=== PATIENT | male | born 1940 | race Caucasian/White ===

== ENCOUNTER 2017-08-21 17:19 | Emergency (ER) | payer OTHER ==
[~2017-08-21] VITALS: Ht 182.9 cm; Wt 95.5 kg
[2017-08-21] VITALS (18 sets, daily range): BP systolic 152–199; BP diastolic 78–119; PULSE 100–111; TEMP 36.5; O2SAT 92–98; Ht 182.9 cm; Wt 95.5 kg
[~2017-08-21 17:19] MED LIST: ACET-1256 PO; DTR5 PO; FINA5TAB PO; FURO40TA3 PO; MAGNSUS5 PO; MCRK20 PO; METO50TA8 PO; MOME1AER4 INH; OMEP20CA9 PO; OXGN; SENN8.6T94 PO; TERA1CAP63 PO; TIOTCAP INH; TYLOTC500 PO
[2017-08-21] MEDS ORDERED: FENTANYL CITRATE INJ 50 MCG/1 ML 2 ML VIAL IV STA (17:45)
[2017-08-21 18:10] LABS: HEMATOCRIT 46.1 % (42-52); HEMOGLOBIN 15.8 g/dL (14.0-18.0); MEAN CELL VOLUME 96.4 fL (80-100); MEAN CORPUSCULAR HEMOGLOBIN 33.1 pg (25-34); MEAN CORPUSCULAR HGB CONC 34.3 g/dl (32-36); MEAN PLATELET VOLUME 9.1 fL (7.4-10.4); PLATELET COUNT 173 K/uL (130-400); RED CELL DISTRIBUTION WIDTH CV 13.2 % (11.5-14.5); RED CELL DISTRIBUTION WIDTH SD 46.2 fL (36.4-46.3); WHITE BLOOD COUNT 9.94 K/uL (4.8-10.8)
[2017-08-21 18:21] LABS: PTT PATIENT 23.3 SECONDS (21.0-31.0)
[2017-08-21] MEDS ORDERED: LORA10TA51 PO (18:22)
[2017-08-21 18:29] LABS: CALCIUM 9.3 mg/dl (8.5-10.1); CREATININE 1.15 mg/dl (0.60-1.40); POTASSIUM 4.2 mmol/L (3.5-5.1)
--- NOTE | 2017-08-21 18:49 | DIAGNOSTIC IMAGING REPORT ---
CT SCAN OF THE BRAIN WITHOUT IV CONTRAST CLINICAL HISTORY: Fall with head injury. COMPARISON STUDY: No priors. TECHNIQUE: Unenhanced axial CT scan of the brain is performed from the vertex to the skull base. A dose lowering technique was utilized adhering to the principles of ALARA. FINDINGS: Brain parenchyma: There are age-related involutional changes noting mild subcortical and periventricular microangiopathic change. There is no hemorrhage, mass effect, or evidence of acute territorial ischemia by CT criteria. Barton-white matter is preserved. No extra-axial fluid collection is seen. Ventricles, sulci, cisterns: Prominent secondary to involutional change. Intracranial vasculature: There is atherosclerotic calcification of the cavernous carotid intervertebral arteries. Calvarium: The skeletal structures are osteopenic. There is no depressed calvarial fracture. Sinuses and mastoids: The visualized paranasal sinuses are clear. The mastoid air cells are well pneumatized. Orbits: The bony orbits are grossly intact. There are bilateral ocular lens implants. IMPRESSION: There is no hemorrhage, mass effect, or evidence of acute territorial ischemia by CT criteria. Electronically signed by: Jose Porter M.D. 08/21/2017 6:47 PM Dictated Date/Time: 08/21/2017 6:45 PM
--- NOTE | 2017-08-21 18:53 | DIAGNOSTIC IMAGING REPORT ---
CT SCAN OF THE CERVICAL SPINE CLINICAL HISTORY: Fall. COMPARISON STUDY: No priors. TECHNIQUE: CT scan of the cervical spine is performed from the skull base to the upper thoracic spine. Images are reviewed in the axial, sagittal, and coronal planes. IV contrast was not administered for this examination. A dose lowering technique was utilized adhering to the principles of ALARA. CT DOSE: 1270.33 mGy.cm FINDINGS: Skeletal structures: The skeletal structures are osteopenic. There is no evidence of fracture or subluxation involving the cervical spine. There is incomplete bony fusion of the posterior ring of C1, likely on a congenital basis. Vertebral body height is maintained. There is minimal anterolisthesis at C7-T1. Alignment is otherwise preserved. There is straightening of the cervical lordosis. Anterior osteophytes are seen throughout. The odontoid process and lateral masses are intact. The atlantoaxial articulation is preserved noting productive degenerative change. The spinous processes appear intact. There is mild multilevel spondylosis. Uncovertebral and facet arthropathy are noted at several levels. Intervertebral discs: Moderate disc space narrowing is seen at C5-C6, C6-C7, and C7-T1. Central canal: Grossly patent. Soft tissues: The prevertebral and paraspinous soft tissues are within normal limits. There is atherosclerotic calcification of the carotid bulbs. Coarse calcification is noted in the right thyroid lobe. Calvarium: The visualized calvarium at the skull base appears intact. Brain parenchyma: Partially visualized brain parenchyma the skull base is within normal limits. Sinuses and mastoids: The visualized paranasal sinuses are clear. The mastoid air cells are well pneumatized. Lung apices: Clear as visualized. IMPRESSION: 1. There is no evidence of fracture or subluxation involving the cervical spine. 2. Osteopenia and spondylotic change as above. Electronically signed by: Jose Porter M.D. 08/21/2017 6:51 PM Dictated Date/Time: 08/21/2017 6:48 PM
[2017-08-21] MEDS ORDERED: NURSING VERBAL MED ORDER ONE (19:20)
[2017-08-21] MEDS ORDERED: CHOL200010 PO (19:21)
[2017-08-21] MEDS ORDERED: METO50TA16 PO (19:21)
[2017-08-21] MEDS ORDERED: SPRIN/30 INH (19:21)
[2017-08-21] MEDS ORDERED: LSX40 PO (19:21)
[2017-08-21] MEDS ORDERED: POTA-639 PO (19:21)
[2017-08-21] MEDS ORDERED: ATV/1 PO (19:21)
[2017-08-21] MEDS ORDERED: DTR/5 PO (19:21)
[2017-08-21] MEDS ORDERED: CALC600T PO (19:21)
[2017-08-21] MEDS ORDERED: PRLSR20 PO (19:21)
[2017-08-21] MEDS ORDERED: MAGN400T6 PO (19:21)
--- NOTE | 2017-08-21 19:41 | EMERGENCY ROOM VISIT NOTE ---
ED Visit Note First contact with patient: 17:22 Patient was seen by our PA/HEALTH CARE ASSISTANT. I was involved in the patient's care and did evaluate the patient myself. I was involved in the care throughout the ER stay. The patient presents after a fall. Imaging revealed a left anterior shoulder dislocation. No evidence for injury to the neck or brain from the fall. The patient has COPD and was hypoxic here even without being medicated. We did attempt to put his left shoulder back into position with scapular manipulation and humeral traction while he was prone, this was not successful. He could not relax enough for the shoulder to be reduced. Because he is a high risk patient with regards to anesthesia, the anesthesiologist on-call has been consulted for conscious sedation.
[2017-08-21] MEDS ORDERED: MOME110A INH (20:16)
--- NOTE | 2017-08-21 20:29 | EMERGENCY ROOM VISIT NOTE ---
Pre-Mod Sedation Assessment General Date of Moderate Sedation: Aug 21, 2017. Vital Signs: Vital Signs Past 12 Hours Date Time Temp Pulse Resp B/P (MAP) Pulse Ox O2 Delivery O2 Flow Rate FiO2 08/21/17 18:55 96 20 161/77 96 08/21/17 17:30 36.5 92 18 196/94 94 Room Air Review Cardiovascular: no gallop, + tachycardia, + systolic murmur Abdomen: normal bowel sounds, non tender, soft, no organomegaly, no pulsatile mass Lungs: chest non-tender, lungs clear, normal breath sounds, no respiratory distress, no accessory muscle use Pre-Sedation Airway Assessment Oral Cavity: Dentures Able to Visualize Vocal Cords: No Short Thick Neck: No Hx of Sleep Apnea: No Smoking Status: Never Smoker Mallampati Classification: Class I ASA Classification: Class III Procedure Planning Contraindications-for Mod Sed: None Yes Notes The planned sedation has been discussed with the patient and consent obtained. I have identified the patient, determined the appropriateness of sedation and have assessed the patient immediately prior to the procedure. All medicine(s) and interventions are by my order.
[2017-08-21] MEDS ORDERED: ONDANSETRON INJ 2 MG/ML 2 ML VIAL IV STA (20:31)
[2017-08-21] MEDS ORDERED: ONDANSETRON INJ 2 MG/ML 2 ML VIAL ONE (20:32)
[2017-08-21] MEDS ORDERED: PROPOFOL IV EMULSION 10 MG/ML 20 ML VIAL IV ONE (20:40)
[2017-08-21] MEDS ORDERED: KETAMINE HCL INJ 50 MG/ML 10 ML VIAL ONE (20:40)
--- NOTE | 2017-08-21 20:56 | EMERGENCY ROOM VISIT NOTE ---
Post-Moderate Sedation Plan General Date of Moderate Sedation Aug 21, 2017. Vital Signs: Vital Signs Past 12 Hours Date Time Temp Pulse Resp B/P (MAP) Pulse Ox O2 Delivery O2 Flow Rate FiO2 08/21/17 20:19 103 21 94 08/21/17 20:18 195/100 08/21/17 19:49 172/86 08/21/17 18:55 96 20 161/77 96 08/21/17 17:30 36.5 92 18 196/94 94 Room Air Review - Discharge Plan Post Moderate Sedation Plan: On clinical assessment, the patient appears to have tolerated the conscious sedation without complications. Patient is recovering as anticipated. Patient will continue to be monitored by nursing and may be discharged when conscious sedation discharge criteria are met.
[2017-08-21] MEDS ORDERED: METOPROLOL TARTRATE 50 MG TAB PO STA (21:30)
--- NOTE | 2017-08-21 21:59 | EMERGENCY ROOM VISIT NOTE ---
ED Visit Note First contact with patient: 17:22 Conscious sedation: The patient did consent to conscious sedation, all the appropriate paperwork was signed. A timeout was taken. He was placed on the needed monitors, an Ambu bag and suction were made ready. The patient received a total of 50 mg of ketamine IV, 25 mg of propofol IV, this allowed for conscious sedation and the left shoulder was reduced. The patient was watched after the procedure, he has done well. No hypoxia. He is awake and interactive. His blood pressure was higher right after the procedure however, the blood pressure did begin to trend down. The patient was due for his nightly dose of metoprolol, this was given orally. Postreduction films were ordered. Total time for the procedure was 16 minutes.
--- NOTE | 2017-08-21 22:17 | DIAGNOSTIC IMAGING REPORT ---
LEFT WRIST 3 VIEWS CLINICAL HISTORY: Fall with left arm pain. FINDINGS: AP, oblique, and crosstable lateral views of left wrist are attempted. No prior studies are available for comparison at the time of dictation. The examination is degraded by suboptimal positioning. The skeletal structures are osteopenic. No fracture is identified. There is negative ulnar variance. Cystic degenerative change is present in the distal radius. The joint spaces of the wrist appear preserved. The overlying soft tissues are normal as visualized. IMPRESSION: There is no radiographic evidence of left wrist fracture noting an examination degraded by inability to properly position the patient. If there is strong clinical concern for occult fracture consider short-term radiographic follow-up. Electronically signed by: Jose Porter M.D. 08/21/2017 10:15 PM Dictated Date/Time: 08/21/2017 10:13 PM
--- NOTE | 2017-08-21 22:26 | DIAGNOSTIC IMAGING REPORT ---
LEFT SHOULDER 3 VIEWS CLINICAL HISTORY: Fall with left shoulder pain. FINDINGS: 3 portable views of the left shoulder are obtained. No prior studies are available for comparison at the time of dictation. The skeletal structures are osteopenic. No fracture or dislocation is identified. The glenohumeral articulation is preserved. Mild arthritic change and sclerosis is seen in the greater tuberosity of the humeral head. Productive change is noted at the acromioclavicular joint. The overlying soft tissues are within normal limits. The visualized left upper lobe lung parenchyma appears clear. IMPRESSION: Osteopenia and mild arthritic change as above. No left shoulder fracture or dislocation is identified. Electronically signed by: Jose Porter M.D. 08/21/2017 10:24 PM Dictated Date/Time: 08/21/2017 10:23 PM
--- NOTE | 2017-08-21 23:06 | EMERGENCY ROOM VISIT NOTE ---
History First contact with patient: 17:22 Chief Complaint: FALL Stated Complaint: SHOULDER PAIN, FALL History of Present Illness The patient is a 77 year old male who presents to the Emergency Room via ambulance with complaints of "shoulder pain, fall". The patient states that earlier today around 1630 he was ambulating across a region of his house, when he tripped over the carpet and then fell forward. He believes that he caught his left shoulder on a table and then fell to the ground striking his face. He notes his only pain is that in the left shoulder which he rates as a 9/10. He has never dislocated this before. He has right-hand dominant. Any blood thinner he takes is aspirin. There is no chest pain or shortness of breath. No strokelike symptoms. Review of Systems A complete 10-point Review of Systems was discussed with the patient, with pertinent positives and negatives listed in the History of Present Illness. All remaining Review of Systems questions can be considered negative unless otherwise specified. Past Medical/Surgical History Medical Problems: (1) COPD (chronic obstructive pulmonary disease) (2) HLD (hyperlipidemia) (3) HTN (hypertension) (4) Prostate disease (5) Sepsis Surgical Problems: (1) H/O hernia repair (2) History of appendectomy (3) S/P TURP Family History FH: heart disease Social History Smoking Status: Never Smoker Marital Status: Housing Status: lives with family Occupation Status: retired Current/Historical Medications Scheduled Acetaminophen (Tylenol), 1,000 MG PO HS Calcium Carbonate (Calcium 600), 600 MG PO BID Cholecalciferol (Vitamin D), 2,000 UNITS PO DAILY Finasteride (Proscar), 5 MG PO HS Furosemide (Furosemide), 40 MG PO DAILY Loratadine (Claritin), 10 MG PO HS Lorazepam (Ativan), 1 MG PO BID Magnesium Oxide (Mag-Ox), 400 MG PO DAILY Metoprolol Tartrate (Lopressor) (Lopressor), 50 MG PO BID Mometasone Furoate (Inhalation (Asmanex 30 Metered Doses), 1 PUFF INH BID Omeprazole (Prilosec), 20 MG PO DAILY Oxybutynin Chloride (Ditropan), 5 MG PO TID Potassium Ext Rel (Klor-Con), 20 MEQ PO DAILY Sennosides (Sennosides), 8.6 MG PO HS Terazosin Hcl (Hytrin), 10 MG PO HS Tiotropium [place] (Spiriva Handihaler), 1 CAP INH DAILY Scheduled PRN Acetaminophen (Tylenol), 1,000 MG PO Q6H PRN for Pain or Fever Physical Exam Vital Signs Date Time Temp Pulse Resp B/P (MAP) Pulse Ox O2 Delivery O2 Flow Rate FiO2 08/21/17 23:30 110 18 159/78 96 08/21/17 22:59 111 08/21/17 22:47 110 18 155/98 94 Nasal Cannula 3.0 08/21/17 22:31 108 149/107 94 Nasal Cannula 3.0 08/21/17 22:00 109 20 159/102 96 Nasal Cannula 3.0 08/21/17 21:55 110 25 159/99 95 Nasal Cannula 3.0 08/21/17 21:50 111 23 157/89 95 Nasal Cannula 3.0 08/21/17 21:45 109 22 152/84 95 Nasal Cannula 3.0 08/21/17 21:40 109 19 185/98 98 Nasal Cannula 3.0 08/21/17 21:37 106 25 170/117 97 Nasal Cannula 3.0 08/21/17 21:35 107 19 153/103 97 Nasal Cannula 3.0 08/21/17 21:30 107 23 155/102 95 Nasal Cannula 3.0 08/21/17 21:25 107 20 173/105 96 Nasal Cannula 3.0 08/21/17 21:20 105 28 185/93 96 Nasal Cannula 3.0 08/21/17 21:10 105 28 199/102 96 Nasal Cannula 3.0 08/21/17 21:05 103 22 196/119 96 Nasal Cannula 4.0 08/21/17 21:00 104 22 190/107 95 Nasal Cannula 4.0 08/21/17 20:55 100 22 192/93 97 Nasal Cannula 4.0 08/21/17 20:50 102 28 194/107 92 Nasal Cannula 4.0 08/21/17 20:46 100 19 194/107 95 Nasal Cannula 2.0 08/21/17 20:19 103 21 94 08/21/17 20:18 195/100 08/21/17 19:49 172/86 08/21/17 18:55 96 20 161/77 96 08/21/17 17:30 36.5 92 18 196/94 94 Room Air Physical Exam VITAL SIGNS - Vital signs and nursing notes were reviewed. Stable and hypertensive. GENERAL -77-year-old male appearing his stated age who is in no acute distress. Communicates well with provider and answers questions appropriately. SKIN - Without rashes. No meningeal or petechial rash. The skin overlying the left shoulder is unremarkable other than it is slightly deformed underneath suggesting that of a left shoulder dislocation. HEAD - NC/AT. No gomez signs or raccoon's eyes. EYES - PERRL with EOMI bilaterally. Sclera anicteric. No hyphema. EARS - No deformities of external structures noted on gross examination bilaterally. No hemotympanum. External auditory canals without discharge or otorrhea. Tympanic membranes pearly barton without retraction or bulging. No fluid or purulent material visualized behind the TM. Handle of malleus, umbo, cone of light, pars tensa/flaccid all easily visualized. NOSE - Midline and without cyanosis. No epistaxis or purulent drainage noted. Septum midline without deviation or septal hematoma noted. MOUTH/OROPHARYNX - Without perioral cyanosis. Buccal mucosa pink and moist and without leukoplakia. Tongue midline with equal elevation of palate bilaterally. No tonsillar hypertrophy, erythema, or exudates noted. Fair dentition noted. NECK - Neck with FROM. Supple to palpation. No C-spine tenderness. LUNGS - Chest wall symmetric without accessory muscle use, intercostals retractions, or central cyanosis. Normal vesicular breath sounds CTA B/L. No wheezes, rales, or rhonchi appreciated. CARDIAC - RRR with S1/S2. No murmur, rubs, or gallops appreciated. EXTREMITIES - No clubbing or peripheral cyanosis. Tenderness overlying the left shoulder joint. Decreased range of motion secondary to suspected dislocation. He is neurovascularly intact distal to the suspected dislocation. +5/5 strength noted in UE/LE bilaterally. NEUROLOGIC - Cranial nerves II through XII grossly intact. Sensory intact to light touch throughout. PSYCH - A&O, and cooperates fully with examiner. Pt is very pleasant and interacts well with examiner. Medical Decision & Procedures ER Provider Diagnostic Interpretation: CT SCAN OF THE BRAIN WITHOUT IV CONTRAST CLINICAL HISTORY: Fall with head injury. COMPARISON STUDY: No priors. TECHNIQUE: Unenhanced axial CT scan of the brain is performed from the vertex to the skull base. A dose lowering technique was utilized adhering to the principles of ALARA. FINDINGS: Brain parenchyma: There are age-related involutional changes noting mild subcortical and periventricular microangiopathic change. There is no hemorrhage, mass effect, or evidence of acute territorial ischemia by CT criteria. Barton-white matter is preserved. No extra-axial fluid collection is seen. Ventricles, sulci, cisterns: Prominent secondary to involutional change. Intracranial vasculature: There is atherosclerotic calcification of the cavernous carotid intervertebral arteries. Calvarium: The skeletal structures are osteopenic. There is no depressed calvarial fracture. Sinuses and mastoids: The visualized paranasal sinuses are clear. The mastoid air cells are well pneumatized. Orbits: The bony orbits are grossly intact. There are bilateral ocular lens implants. IMPRESSION: There is no hemorrhage, mass effect, or evidence of acute territorial ischemia by CT criteria. Electronically signed by: Jose Porter M.D. 08/21/2017 6:47 PM Dictated Date/Time: 08/21/2017 6:[address] SCAN OF THE CERVICAL SPINE CLINICAL HISTORY: Fall. COMPARISON STUDY: No priors. TECHNIQUE: CT scan of the cervical spine is performed from the skull base to the upper thoracic spine. Images are reviewed in the axial, sagittal, and coronal planes. IV contrast was not administered for this examination. A dose lowering technique was utilized adhering to the principles of ALARA. CT DOSE: 1270.33 mGy.cm FINDINGS: Skeletal structures: The skeletal structures are osteopenic. There is no evidence of fracture or subluxation involving the cervical spine. There is incomplete bony fusion of the posterior ring of C1, likely on a congenital basis. Vertebral body height is maintained. There is minimal anterolisthesis at C7-T1. Alignment is otherwise preserved. There is straightening of the cervical lordosis. Anterior osteophytes are seen throughout. The odontoid process and lateral masses are intact. The atlantoaxial articulation is preserved noting productive degenerative change. The spinous processes appear intact. There is mild multilevel spondylosis. Uncovertebral and facet arthropathy are noted at several levels. Intervertebral discs: Moderate disc space narrowing is seen at C5-C6, C6-C7, and C7-T1. Central canal: Grossly patent. Soft tissues: The prevertebral and paraspinous soft tissues are within normal limits. There is atherosclerotic calcification of the carotid bulbs. Coarse calcification is noted in the right thyroid lobe. Calvarium: The visualized calvarium at the skull base appears intact. Brain parenchyma: Partially visualized brain parenchyma the skull base is within normal limits. Sinuses and mastoids: The visualized paranasal sinuses are clear. The mastoid air cells are well pneumatized. Lung apices: Clear as visualized. IMPRESSION: 1. There is no evidence of fracture or subluxation involving the cervical spine. 2. Osteopenia and spondylotic change as above. Electronically signed by: Jose Porter M.D. 08/21/2017 6:51 PM Dictated Date/Time: 08/21/2017 6:48 PM LEFT SHOULDER 3 VIEWS CLINICAL HISTORY: Fall with left shoulder pain. FINDINGS: 3 portable views of the left shoulder are obtained. No prior studies are available for comparison at the time of dictation. The skeletal structures are osteopenic. No fracture or dislocation is identified. The glenohumeral articulation is preserved. Mild arthritic change and sclerosis is seen in the greater tuberosity of the humeral head. Productive change is noted at the acromioclavicular joint. The overlying soft tissues are within normal limits. The visualized left upper lobe lung parenchyma appears clear. IMPRESSION: Osteopenia and mild arthritic change as above. No left shoulder fracture or dislocation is identified. Electronically signed by: Jose Porter M.D. 08/21/2017 10:24 PM Dictated Date/Time: 08/21/2017 10:23 PM [~ rep ct add3]] LEFT WRIST 3 VIEWS CLINICAL HISTORY: Fall with left arm pain. FINDINGS: AP, oblique, and crosstable lateral views of left wrist are attempted. No prior studies are available for comparison at the time of dictation. The examination is degraded by suboptimal positioning. The skeletal structures are osteopenic. No fracture is identified. There is negative ulnar variance. Cystic degenerative change is present in the distal radius. The joint spaces of the wrist appear preserved. The overlying soft tissues are normal as visualized. IMPRESSION: There is no radiographic evidence of left wrist fracture noting an examination degraded by inability to properly position the patient. If there is strong clinical concern for occult fracture consider short-term radiographic follow-up. Electronically signed by: Jose Porter M.D. 08/21/2017 10:15 PM Dictated Date/Time: 08/21/2017 10:13 PM Laboratory Results 08/21/17 18:00 08/21/17 18:00 Test 08/21/17 18:00 Red Blood Count 4.78 M/uL (4.7-6.1) Mean Corpuscular Volume 96.4 fL (80-100) Mean Corpuscular Hemoglobin 33.1 pg (25-34) Mean Corpuscular Hemoglobin Concent 34.3 g/dl (32-36) RDW Standard Deviation 46.2 fL (36.4-46.3) RDW Coefficient of Variation 13.2 % (11.5-14.5) Mean Platelet Volume 9.1 fL (7.4-10.4) Prothrombin Time 10.2 SECONDS (9.0-12.0) Prothromb Time International Ratio 1.0 (0.9-1.1) Activated Partial Thromboplast Time 23.3 SECONDS (21.0-31.0) Partial Thromboplastin Ratio 0.9 Anion Gap 5.0 mmol/L (3-11) Est Creatinine Clear Calc Drug Dose 63.5 ml/min Estimated GFR () 70.3 Estimated GFR (Non- 60.6 BUN/Creatinine Ratio 25.7 (10-20) Calcium Level 9.3 mg/dl (8.5-10.1) Medications Administered Medications (Trade) Dose Ordered Sig/Froilan Route Start Time Stop Time Status Last Admin Dose Admin Fentanyl Citrate (Fentanyl Inj) 50 mcg NOW STAT IV 08/21/17 17:45 08/21/17 17:48 DC 08/21/17 18:10 50 MCG Miscellaneous Information (Nursing Verbal Med Order) 1 ea ONE ONCE N/A 08/21/17 19:20 08/21/17 19:40 DC 08/21/17 19:20 1 EA Ondansetron HCl (Zofran Inj) 4 mg NOW STAT IV 08/21/17 20:31 08/21/17 20:32 DC 08/21/17 20:37 4 MG Metoprolol Tartrate (Lopressor Tab) 50 mg NOW STAT PO 08/21/17 21:30 08/21/17 21:31 DC 08/21/17 21:42 50 MG Procedure Patient presents today with suspected left shoulder dislocation. He is neurovascularly intact. An attempt was made at bedside after giving him 50 mcg of fentanyl to reduce the left shoulder. He was placed prone. The musculature was too tense to reduce this. Patient was uncomfortable and was unable to fully relax the left arm to reduce safely. After discussing benefit versus risk as well as discussing this with the attending physician, decision was made to pursue conscious sedation. I did talk with Dr. Gomez of anesthesia because the patient presents today with an ASA classification of 3. He has hypoxia with O2 sats in the high 80s and is normally on oxygen at night. He also has COPD/asthma. I spoke with them and it was noted that we have privileges here in the emergency department with the attending physician in the emergency department to perform conscious sedation on this classification of individual. We then decided to pursue after discussing benefit versus risk with the patient to sedate in the emergency department. This was in room B1. Dr. harrell performed the conscious sedation after a timeout was taken, and the patient was thoroughly educated upon benefit versus risk. The patient was placed in a supine position with the head of the 45 angle and then slightly lowered to better maximize airway. I then with traction countertraction utilizing sheets, was able to gently distract the left humerus from its dislocated position back into the glenohumeral joint without difficulty. He was neurovascularly intact. He was placed in a sling. He was awoken from sedation and was doing very well. No complications. Medical Decision Patient was seen and evaluated as above in room D1 and then B1 for procedure. Review was performed of nursing notes and vital signs. After obtaining a thorough history and physical examination the above work up was performed. CT scan was obtained of the head and neck secondary to mechanism. No acute injury. On the collision mechanic film for the CT of the neck there is a left anterior shoulder dislocation. Please see procedure note above. This was initially attempted in room D1 with simple pain medication however this was not tolerable. Conscious sedation was then performed. This is also outlined in the procedure section of this note. He tolerated this well. X-rays were then obtained postreduction. This was with good result. Wrist is also negative. He has no pain after the sedation. He notes that the left shoulder pain is much improved. He was observed for numerous hours post sedation and was at baseline. He was given 50 mg of metoprolol p.o. with good result in the blood pressure. He is to wear the sling and follow-up with orthopedics and return with worsening. He was educated upon the incidentals of the CT head and neck. He was educated upon worrisome symptoms which to return, the patient was educated upon management, had questions answered prior to discharge, and was discharged home in good condition. Case was discussed with the attending physician. In the evaluation and treatment of this patient, the following differential diagnoses were considered: Concussion, Contrecoup Injury, Brain Tumor, Depression, Encephalitis, Hypothyroidism, Meningitis, CVA, TIA, Migraine, Cluster Headache, Intracranial Abnormality, Intracranial Hemorrhage, Subdural Hematoma, Subarachnoid Hemorrhage, Hydrocephalus, Musculoskeletal Strain, Discitis, Cervical Spine Fracture, Cervical Spine Dislocation, Cervical Spine Subluxation, Cervical Spondylosis, Fibromyalgia, Osteoarthritis, Polymyalgia Rheumatica, Psychogenic Pain Disorder, Tumor of Soft Tissue or Spine,Shoulder Contusion, Shoulder Fracture, Shoulder Dislocation, Thoracic Outlet Syndrome, Adhesive Capsulitis, Rotator Cuff Tear, Proximal Clavicle Head Fracture, Apical Pneumonia, Pneumothorax, Hemothorax, or TB. Impression Primary Impression: Fall Additional Impression: Shoulder dislocation Departure Information Dispostion Home / Self-Care Condition GOOD Referrals Junior Cunningham M.D. (PCP) Forms HOME CARE DOCUMENTATION FORM, IMPORTANT VISIT INFORMATION Patient Instructions [facility] Additional Instructions You have been treated in the Emergency Department for Shoulder Pain. You have received pain medicine in the emergency department which impairs your ability to operate a vehicle. It is illegal for you to drive after receiving these medicines. You have received conscious sedation. Please have family check on you over the next 24 hours. For pain control, you can use the following [id number] medicines (if >12 yo): - Regular strength (325mg/tab) Tylenol (acetaminophen) 2 tabs every 4-6 hours as needed. Do not exceed 12 tablets in a 24 hour period. Avoid taking more than 3 grams (3000 mg) of Tylenol per day. This includes any other sources of acetaminophen you may take on a regular basis. If this is a recent injury (<24 hrs), ice can be applied to the area of pain for the first 3 days to help decrease pain and inflammation. You have been provided the number for an Orthopaedic Surgeon. You should call this number as soon as possible to establish a follow-up visit from today's Emergency Department visit. Keep the shoulder brace/sling in place until evaluated by Orthopedics. Continue to perform range of motion exercises several times per day to help prevent the development of a "frozen shoulder". Return to the Emergency Department if your current symptoms worsen despite treatment course outlined above, or if you develop any of the following symptoms : intractable pain despite aforementioned treatment course or new onset of numbness or tingling of the arm. Problem Qualifiers
== END 2017-08-21 23:30 | disposition home or self-care (01) ==
LOC: EDBD 17:19 → C.EDD 17:20 → C.EDB 23:30
DX: S43.015A Anterior dislocation of left humerus, initial encounter (principal); W22.8XXA Striking against or struck by other objects, initial encounter; Y92.019 Unspecified place in single-family (private) house as the place of occurrence of the external cause; J44.9 Chronic obstructive pulmonary disease, unspecified; E78.5 Hyperlipidemia, unspecified; I10 Essential (primary) hypertension; Z79.82 Long term (current) use of aspirin; Z79.899 Other long term (current) drug therapy